=== PATIENT | female | born 1980 | race Caucasian/White ===

== ENCOUNTER 2017-01-17 19:17 | Observation (INO) ==
[2017-01-17] MEDS ORDERED: SODIUM CHLORIDE 0.9% 1,000 ML IV STA (20:30)
[2017-01-17 21:23] LABS: Basophils % 0.2 % (0.0-0.8); Eosinophils # 0.2 10*3/uL (0.0-0.87); Eosinophils % 3.5 % (0.00-10.9); Hematocrit 23.9 VOL% (35.7-47.0); Immature Granulocytes % 0.2 %; Immature Granulocytes Absolute 0.01 #; Lymphocytes # 2.6 10*3/uL (1.4-4.0); Lymphocytes % 40.9 % (21.3-54.2); Mean Corpuscular HGB Conc 29.3 GM/DL (32-36); Mean Corpuscular Hemoglobin 23 PG (27-34); Mean Corpuscular Volume 77.9 FL (87-102); Mean Platelet Volume 14.2 FL (9.6-12.0); Monocytes # 0.5 10*3/uL (0.11-0.8); Monocytes % 7.1 % (1.7-12.7); Neutrophils # 3.1 10*3/uL (1.4-7.4); Neutrophils % 48.1 % (38.7-73.9); Platelet Count 164 T/CUMM (130-400); Red Blood Count 3.07 MC/CUMM (3.8-5.5); Red Cell Distribution Width 14.9 % (9.3-17.3); White Blood Count 6.3 T/CUMM (4-12)
[2017-01-17 21:39] LABS: Alanine Aminotransferase 15 U/L (13-56); Albumin 3.5 G/DL (3.4-5.0); Alkaline Phosphatase 57 U/L (45-117); Amylase 21 U/L (25-115); Aspartate Amino Transferase 6 U/L (0-37); Bilirubin,Total < 0.39 MG/DL (0.2-1.0); Blood Urea Nitrogen 21 MG/DL (7-18); Calcium 8.5 MG/DL (8.5-10.1); Glucose 93 MG/DL (74-106); Osmolality,Calculated 283.3 MOS/KG (273-304); Potassium 3.8 MMOL/L (3.5-5.1); Sodium 141 MMOL/L (136-145); Total Protein 6.4 G/DL (6.4-8.3)
[2017-01-17] MEDS ORDERED: NICOTINE 14 MG/24 HR PATCH TRANSDERM PRN (23:14)
[2017-01-18 01:09] LABS: Apearance,Urine CLEAR (Clear); Bilirubin,Urine Negative (Negative); Blood, Urine Negative (Negative); Glucose,Urine (UA) Negative (Negative); Hyaline Casts,Urine 4 /LPF (0-3); Ketones,Urine Negative (Negative); Mucus,Urine Occasional /LPF (Occasional); Nitrite,Urine Negative (Negative); Protein,Urine Negative; RBC,Urine 2 /HPF (0-4); Squamous Epithelial Cell,Urine Occasional /HPF (0-10); Urine Color Yellow (Yellow); Urine Specific Gravity 1.017 (1.001-1.035); Urine Urobilinogen < 2.0 EU/DL (0.2-1.0); WBC,Urine 1 /HPF (0-6)
[2017-01-18] MEDS ORDERED: ONDANSETRON 4 MG/2 ML VIAL IV PRN (01:39)
[2017-01-18] MEDS ORDERED: ACETAMINOPHEN 325 MG TABLET PO PRN (01:39)
[2017-01-18] MEDS ORDERED: SODIUM CHLORIDE 0.9% 250 ML IV PRN (01:39)
[2017-01-18 03:12] LABS: % Iron Saturation 3.5 % (18-50); Ferritin 2.9 ng/ml (8-252)
[2017-01-18] MEDS ORDERED: CARVEDILOL 12.5 MG TABLET PO SCH (09:00)
[2017-01-18] MEDS ORDERED: PANTOPRAZOLE 40 MG TABLET PO SCH (09:00)
[2017-01-18] MEDS ORDERED: DOCUSATE SODIUM 100 MG CAPSULE PO SCH (09:00)
[2017-01-18] MEDS ORDERED: PREGABALIN 100 MG CAPSULE PO SCH (09:00)
[2017-01-18 13:44] LABS: Hematocrit 27.5 VOL% (35.7-47.0); Hemoglobin 8.4 GM/DL (12.0-16.0)
[2017-01-18 13:50] VITALS: BP 118/81
== END 2017-01-18 15:16 | disposition home or self-care (01) ==
LOC: N.ED 19:17 → INTOOBSV 23:21 → N.EDINP 23:21 → N.2E 23:49
PROVIDERS: ADMIT Internal Medicine Geriatric Medicine; ATTEND Internal Medicine Geriatric Medicine

== ENCOUNTER 2018-10-15 13:39 | Observation (INO) ==
[2018-10-15 16:14] LABS: Basophils % 0.3 % (0.0-0.8); Eosinophils # 0.1 10*3/uL (0.0-0.87); Hematocrit 20.4 VOL% (35.7-47.0); Immature Granulocytes % 0.7 %; Immature Granulocytes Absolute 0.08 #; Lymphocytes # 2.1 10*3/uL (1.4-4.0); Lymphocytes % 18.6 % (21.3-54.2); Mean Platelet Volume 10.3 FL (9.6-12.0); Monocytes % 8.4 % (1.7-12.7); NRBC # 0.02 10*3/uL; Platelet Count 432 T/CUMM (130-400); White Blood Count 11.3 T/CUMM (4-12)
[2018-10-15 16:17] LABS: Albumin 2.3 G/DL (3.4-5.0); Bilirubin,Total 0.5 MG/DL (0.2-1.0); Osmolality,Calculated 285.8 MOS/KG (273-304); Total Protein 5.5 G/DL (6.4-8.3)
[2018-10-15 16:18] LABS: Hemoglobin 5.5 GM/DL (12.0-16.0)
[2018-10-15 16:32] LABS: Apearance,Urine CLEAR (Clear); Blood, Urine Negative (Negative); Glucose,Urine (UA) Negative (Negative); Hyaline Casts,Urine 25 /LPF (0-3); Ketones,Urine Negative (Negative); Mucus,Urine Occasional /LPF (Occasional); Nitrite,Urine Negative (Negative); Protein,Urine Negative; RBC,Urine 1 /HPF (0-4); Squamous Epithelial Cell,Urine Occasional /HPF (0-10); Urine Color Yellow (Yellow); Urine Urobilinogen < 2.0 EU/DL (0.2-1.0); WBC,Urine 1 /HPF (0-6)
[2018-10-15 16:33] LABS: Bilirubin,Urine Small mg/dL (Negative)
[2018-10-15] MEDS ORDERED: ACETAMINOPHEN 325 MG TABLET PO PRN (16:40)
[2018-10-15] MEDS ORDERED: SODIUM CHLORIDE 0.9% 1,000 ML IV PRN ×2 (16:43→16:44)
[2018-10-15 17:48] LABS: Basophils % 0.3 % (0.0-0.8); Eosinophils # 0.1 10*3/uL (0.0-0.87); Eosinophils % 0.9 % (0.00-10.9); Hematocrit 22.9 VOL% (35.7-47.0); Immature Granulocytes % 0.4 %; Immature Granulocytes Absolute 0.05 #; Lymphocytes # 2.2 10*3/uL (1.4-4.0); Lymphocytes % 19.7 % (21.3-54.2); Mean Corpuscular HGB Conc 26.6 GM/DL (32-36); Mean Corpuscular Volume 85.8 FL (87-102); Mean Platelet Volume 10.5 FL (9.6-12.0); Monocytes % 6.6 % (1.7-12.7); Neutrophils % 72.1 % (38.7-73.9); Platelet Count 513 T/CUMM (130-400); Red Blood Count 2.67 MC/CUMM (3.8-5.5); Red Cell Distribution Width 21.2 % (9.3-17.3); White Blood Count 11.3 T/CUMM (4-12)
[2018-10-15 17:52] LABS: Hemoglobin 6.1 GM/DL (12.0-16.0)
[2018-10-15 17:53] LABS: Folate 5.7 NG/ML (5.4-24.0); Vitamin B12 290 PG/ML (211-911)
[2018-10-15 18:05] LABS: Hypochromasia 1+; Microcytosis 1+
[2018-10-15 18:06] LABS: Helmet Cells Few; Macrocytosis Slight; Platelet Estimate Adequate; Polychromasia Slight
[2018-10-15 18:56] LABS: Sedimentation Rate-Westergren 42 MM/HR (0-20)
[2018-10-15] MEDS: PREGABALIN 100 MG CAPSULE PO SCH (21:15)
[2018-10-15] MEDS: PANTOPRAZOLE 40 MG TABLET PO SCH (21:15)
[2018-10-16] MEDS: ONDANSETRON 4 MG/2 ML VIAL IV PRN ×2 (00:24→09:21)
[2018-10-16 06:47] LABS: Hematocrit 25.9 VOL% (35.7-47.0); Hemoglobin 7.4 GM/DL (12.0-16.0)
[2018-10-16] MEDS ORDERED: diphenhydrAMINE 50 MG/1 ML VIAL IV ONE (09:00)
[2018-10-16] MEDS ORDERED: DEXAMETHASONE INJ 10 MG in SODIUM CHLORIDE 0.9% 50 ML IV ONE (09:00)
[2018-10-16] MEDS ORDERED: PANTOPRAZOLE 40 MG TABLET PO SCH (09:00)
[2018-10-16] MEDS ORDERED: IRON DEXTRAN 25 MG in SYRINGE 1 EACH IV ONE (09:00)
[2018-10-16] MEDS ORDERED: FAMOTIDINE 20 MG/2 ML VIAL IV ONE (09:00)
[2018-10-16 09:23] LABS: Hemoglobin A1 (Alkaline) 97.9 % (96.5-98.5); Hemoglobin A2 (Alkaline) 2.1 % (1.5-3.5)
[2018-10-16] MEDS: PREGABALIN 100 MG CAPSULE PO SCH ×3 (09:24→21:59)
[2018-10-16] MEDS: PANTOPRAZOLE 40 MG TABLET PO SCH ×2 (09:24→20:20)
[2018-10-16] MEDS ORDERED: IRON DEXTRAN 2,000 MG in SODIUM CHLORIDE 0.9% 500 ML IV ONE (12:00)
[2018-10-16] MEDS ORDERED: SODIUM CHLORIDE 0.9% 1,000 ML IV PRN (17:04)
[2018-10-17] MEDS: ONDANSETRON 4 MG/2 ML VIAL IV PRN ×2 (02:00→08:38)
[2018-10-17 07:45] LABS: Basophils % 0.1 % (0.0-0.8); Immature Granulocytes % 0.6 %; Immature Granulocytes Absolute 0.08 #; Lymphocytes # 1.2 10*3/uL (1.4-4.0); Lymphocytes % 8.7 % (21.3-54.2); Mean Corpuscular Volume 85.2 FL (87-102); Mean Platelet Volume 10.2 FL (9.6-12.0); Monocytes % 6.1 % (1.7-12.7); NRBC # 0.03 10*3/uL; Neutrophils % 84.5 % (38.7-73.9); Platelet Count 250 T/CUMM (130-400); Red Blood Count 3.99 MC/CUMM (3.8-5.5); Red Cell Distribution Width 17.7 % (9.3-17.3); White Blood Count 14.3 T/CUMM (4-12)
[2018-10-17 07:46] LABS: Hemoglobin 10.2 GM/DL (12.0-16.0)
[2018-10-17 08:02] LABS: Calcium 7.6 MG/DL (8.5-10.1)
[2018-10-17] MEDS: PREGABALIN 100 MG CAPSULE PO SCH (08:38)
[2018-10-17] MEDS: PANTOPRAZOLE 40 MG TABLET PO SCH (08:38)
[2018-10-17 12:06] VITALS: BP 134/84
== END 2018-10-17 12:01 | disposition home or self-care (01) ==
LOC: N.EDINP 13:39 → N.ED 13:39 → SUATTDRO 16:40 → N.2E 19:33
PROVIDERS: ADMIT Internal Medicine; ATTEND Internal Medicine